=== PATIENT | male | born 1940 | race Caucasian/White ===

== ENCOUNTER → 2016-07-24 | Outpatient (CLI) | payer MEDICARE, BC ==
[~2016-07-24] MED LIST: "\\\"PREP SPRAY\\\"-TIN4 OZ"; AMOXICILLIN500 MG PO; ASPIRIN EC81 MG PO; COLACE100 MG PO; COREG 3.1253.125 MG PO; EFFIENT10 MG PO; FISH OIL 1,2001 EACH PO; FLOMAX0.4 MG PO; LEVOTHROID (S100 MCG PO; LIPITOR40 MG PO; NORCO 5-325 TA1 EACH PO; PRESERVISION A1 EAC2 PO; PRINIVIL OR ZES10 MG PO; SIMBRINZA 1%-0.28 ML OPHTH; TRAVATAN Z OPH2.5 ML OPHTH; TUMS REGULAR ST1 TAB PO; VALIUM5 MG PO; VITAMIN D1000 UNIT PO
--- NOTE | ~2016-07-24 | PUL ---
PATIENT'S NAME: DEYSI GARZA [facility] AGE: 75 Y [address] ROOM: [place] [id number] LOCATION: [facility] ADMIT DATE: 07/24/2016 Pulmonary DISCHARGE DATE: FAMILY PHYSICIAN: CLAUDIA FORD MD ATTENDING PHYSICIAN: Kate Conley NAME OF PROCEDURE: Sleep Study PROCEDURE DATE: 07/24/16 TECH: SARAHI Perez TEST #: [facility] [place]# [id number] TECHNICAL PARAMETERS: The patient was studied using International 10/20 measuring system. While the patient was studied, there was continuous monitoring of EEG (8 leads), EOG (2 leads), EKG (3 leads), submental EMG (3 leads), tibial (4 leads), respiratory inductive plethysmography (RIP) for thoracic and abdominal effort, oral and nasal airflow with a thermocouple and pressure transducer, and oximetry. The factory focus technician also performed visual and auditory observations noting things like body position, patient's status, breath sounds, artifact, snoring level and patient comments. Continuous sound was monitored using a 2-way speaker system and video monitoring was performed using an infrared camera. Review of the entire study was performed epoch by epoch utilizing a single epoch and multiple epoch capability sleep system. MEDICAL HISTORY: Patient is a 75-year-old gentleman with daytime sleepiness and snoring. SLEEP STAGE SUMMARY: The patient was studied for 469 minutes of which he slept 366 minutes. He fell asleep in 4 minutes and slept for 78% of the night. Sleep architecture revealed a decline in slow wave and REM sleep. RESPIRATORY SUMMARY: Oxygen saturations ranged from 76-94%. Saturations were below 88% for 11 minutes. Prior to initiating CPAP there were 10 apneas and 47 obstructive hypopneas for an apnea/hypopnea index of 20 events per hour. CPAP was initiated and titrated to 14 cm with good control of the respiratory events. EKG SUMMARY: No dysrhythmias were noted. LIMB MOVEMENT SUMMARY: No clinically relevant periodic limb movements were noted. SUMMARY: Obstructive sleep apnea responsive to CPAP at 14 cm. PATIENT'S NAME: DEYSI GARZA [facility] AGE: 75 Y [address] ROOM: [place] [address] LOCATION: [facility] ADMIT DATE: 07/24/2016 Pulmonary DISCHARGE DATE: FAMILY PHYSICIAN: CLAUDIA FORD MD ATTENDING PHYSICIAN: Kate Conley PLAN: Suggest CPAP at 14 cm. Patient will receive results from the ordering provider. MD ANTONIO LINDA/ /[id number] dtt: 08/06/16 0742 , Mati Bernardo. dtd: 07/27/16 1328
== END | disposition disaster alternative care site (69) ==
LOC: GSLP 20:24
DX: G47.10 Hypersomnia, unspecified (principal); G47.33 Obstructive sleep apnea (adult) (pediatric); I10 Essential (primary) hypertension; I25.10 Atherosclerotic heart disease of native coronary artery without angina pectoris

== ENCOUNTER → 2016-10-31 | Outpatient (CLI) | payer MEDICARE, BC ==
[2016-10-31 16:41] LABS: BASOPHIL % 0.7 %; EOSINOPHIL # 0.2 K/uL (0.0-0.5); EOSINOPHIL % 4.5 %; HEMATOCRIT 42.2 % (37.0-53.0); HEMOGLOBIN 14.2 g/dL (11.0-16.0); IMMATURE GRANULOCYTE % 0.5 %; LYMPHOCYTE # 1.4 K/uL (0.8-4.0); LYMPHOCYTE % 31.4 %; MCH 31.7 pg (27.0-34.0); MCHC 33.6 gm/dL (32.0-36.5); MCV 94.2 fl (83.0-98.0); MONOCYTE # 0.5 K/uL (0.0-1.0); MONOCYTE % 11.5 %; MPV 10.2 fl (9.4-12.4); NEUTROPHIL # (ANC) 2.3 K/uL (1.4-9.0); NEUTROPHIL % 51.4 %; NRBC % 0 /100WBC (0-0.00); PLATELET COUNT 168 K/uL (150-450); RBC 4.48 M/uL (3.50-5.50); RDW-CV 13.2 % (11.9-14.6); WBC 4.4 K/uL (4.0-11.0)
[2016-10-31 16:58] LABS: ALBUMIN 3.4 gm/dL (3.5-5.0); CALCIUM 8.8 mg/dL (8.5-10.5); CREATININE 1.2 mg/dL (0.6-1.3); TOTAL BILIRUBIN 0.8 mg/dL (0.0-1.5); TOTAL PROTEIN 6.7 g/dL (6.0-8.4)
== END ==
LOC: LNHI 16:27
PROVIDERS: Internal Medicine Cardiovascular Disease
DX: R53.83 Other fatigue (principal); I25.10 Atherosclerotic heart disease of native coronary artery without angina pectoris; E78.2 Mixed hyperlipidemia; I10 Essential (primary) hypertension